=== PATIENT | male | born 2000 | race Caucasian/White ===

== ENCOUNTER 2019-08-18 00:24 | Emergency (ER) | payer OTHER ==
[2019-08-18] MEDS ORDERED: LORAZEPAM INJ 2 MG/1 ML VIAL IV ONE ×2 (00:44→07:24)
[2019-08-18] MEDS ORDERED: KETOROLAC TROMETHAMINE INJ/PF 30 MG/1 ML SDV IV ONE (00:44)
[2019-08-18] MEDS ORDERED: DEXAMETHASONE SOD PHOS INJ 10 MG/1 ML VIAL IV ONE (00:45)
[2019-08-18] MEDS ORDERED: HYDROMORPHONE HCL INJ/PF 2 MG/ML AMPULE IV ONE ×2 (00:46→02:22)
[2019-08-18] MEDS ORDERED: METHOCARBAMOL INJ/PF 1000 MG/10 ML SDV IV ONE (02:19)
--- NOTE | 2019-08-18 02:25 | ER Document Report ---
ED Neck/Back Problem - General Chief Complaint: Back Pain Stated Complaint: BACK PAIN Time Seen by Provider: 08/18/19 00:38 Mode of Arrival: Medic Information source: Patient Notes: 18-year-old man presents to the emergency department with a history of lower back pain. He apparently bent over in the shower and felt sudden sharp pain and suddenly numbness from the waist down with tingling. Denies a history of. Describes numbness and tingling in his legs bilaterally left side greater than right. He denies incontinence of urine or stool. Apparently has had multiple plain x-[place] however no MRI. No blunt trauma or fall, pain in the lower back/SI joints bilaterally left greater than right. TRAVEL OUTSIDE OF THE [place] IN LAST 30 DAYS: No - Related Data Allergies/Adverse Reactions: No Known Allergies Allergy (Unverified 08/18/19 00:32) Past Medical History - Social History Smoking Status: Former Smoker Frequency of alcohol use: Social Drug Abuse: None Family History: Reviewed & Not Pertinent Patient has suicidal ideation: No Patient has homicidal ideation: No Review of Systems - Review of Systems Notes: Constitutional: Negative for fever. HENT: Negative for sore throat. Eyes: Negative for visual changes. Cardiovascular: Negative for chest pain. Respiratory: Negative for shortness of breath. Gastrointestinal: Negative for abdominal pain, vomiting or diarrhea. Genitourinary: Negative for dysuria. Musculoskeletal: + Severe back pain. Skin: Negative for rash. Neurological: + Numbness lower extremities bilaterally 10 point ROS negative except as marked above and in HPI. Physical Exam - Vital signs Vitals: Temp Pulse Resp BP Pulse Ox 99.1 F 84 20 131/87 H 100 08/18/19 00:25 08/18/19 00:25 08/18/19 00:25 08/18/19 00:25 08/18/19 00:25 - Notes Notes: PHYSICAL EXAMINATION: Physical Exam: General: Well-nourished well-developed 18-year-old man in marked distress secondary to back pain HEENT: NC/AT, pupils equal round and reactive to light, MM moist,nares clear, Neck: supple, no adenopathy, no masses. Lungs: clear, no wheezing, no rales no rhonchi CVS: Regular rate and rhythm no murmur gallop or rub Abdomen: Soft active nontender, no masses, no hepatosplenomegaly Ext: + Back pain lower lumbar and sacroiliac area left greater than right Neuro: Alert and responsive, moving all 4 extremities + numbness in the right leg with a paresthesia/tingling on the left side to touch Skin: Intact no open lesions, no rash PSYCH: Normal mood, normal affect. Course - Re-evaluation Re-evalutation: 08/18/19 02:52 Patient was given a cocktail of medications to treat the pain. He received Toradol 30 mg IV, Decadron 10 mg IV, Lorazepam 1 mg IV, hydromorphone 0.5 mg IV. He he obtained some relief of pain and went to the CT scanner. Upon return from the CT scanner he states the pain was starting to return and the severity was back at a 9/10. An order was given then for IV Robaxin at 1000 mg IV and hydromorphone 0.5 mg IV. Review of the CT scan reveals no acute abnormalities, no fracture, no dislocation or narrowing of disc spaces were identified. Given the patient's neurologic complaint along with the severity of pain a MRI is warranted. I discussed this patient with Dr Hinton, as he will assume the patient's care. MRI is being ordered with the understanding that it may not be done before 7 AM. The patient is aware of the wait time for the MRI and is in agreement with getting the study performed. - Vital Signs Vital signs: Temp Pulse Resp BP Pulse Ox 98.0 F 80 18 116/50 L 99 08/18/19 10:34 08/18/19 10:34 08/18/19 07:30 08/18/19 10:34 08/18/19 10:34 - Diagnostic Test Radiology reviewed: Image reviewed, Reports reviewed - CT scan lumbosacral spine: No acute abnormalities noted. Discharge - Discharge Clinical Impression: Numbness and tingling of left leg Low back pain Qualifiers: Chronicity: acute Back pain laterality: bilateral Sciatica presence: with sciatica Sciatica laterality: bilateral sciatica Qualified Code(s): M54.42 - Lumbago with sciatica, left side Condition: Stable Disposition: HOME, SELF-CARE Instructions: Low Back Pain ([facility]), Warm Packs ([facility]) Additional Instructions: Your MRI showed no abnormalities here. Continue to seek out physical therapy. Take muscle relaxers as directed for severe pain. Watch for dizziness and drowsiness with these medications. Follow-up with your primary care provider. Return to the emergency department with worsening or new concerning symptoms of any sort. Prescriptions: Methocarbamol [Robaxin-750] 750 mg PO TID PRN #21 tablet PRN Reason:
--- NOTE | 2019-08-18 02:26 | RADIOLOGY REPORT (SQ) ---
EXAM DESCRIPTION: CT LUMBAR SPINE WITHOUT IV CONTRAST COMPLETED DATE/TME: 08/18/2019 00:48 CLINICAL HISTORY: 18 years, Male, back pain COMPARISON: None. TECHNIQUE: 315 Images stored on PACS. All CT scanners at this facility use dose modulation, iterative reconstruction, and/or weight based dosing when appropriate to reduce radiation dose to as low as reasonably achievable (ALARA). [facility]: Dose Right [facility]: CareDose [facility]: Dose Right [facility]: Teradose 4D [facility]: BitLeap LIMITATIONS: None. FINDINGS: Evaluation of spinal canal contents limited due to CT technique. However, vertebral body height and alignment is preserved. Note is made of a well-corticated ossific density associated with an area of endplate irregularity along the anterior superior margin of L4 vertebral body. This likely reflects normal variant anatomy/unfused ossification center/limbus vertebrae. No CT evidence for acute fracture or subluxation. The disc spaces are otherwise maintained. IMPRESSION: No CT evidence for acute lumbar spine abnormality. TECHNICAL DOCUMENTATION: Quality ID # [id number]: Final reports with documentation of one or more dose reduction techniques (e.g., Automated exposure control, adjustment of the mA and/or kV according to patient size, use of iterative reconstruction technique) copyright 2011 [employer]- All Rights Reserved
[2019-08-18] MEDS ORDERED: DIAZEPAM INJ 10 MG/2 ML DISP.SYRIN IV ONE (04:15)
--- NOTE | 2019-08-18 08:49 | RADIOLOGY REPORT (SQ) ---
EXAM DESCRIPTION: MRI LUMBAR SPINE WITHOUT COMPLETED DATE/TIME: 08/18/2019 8:25 am REASON FOR STUDY: Numbness lower extremities bilaterally COMPARISON: CT of the lumbar spine without contrast from 08/18/2019 TECHNIQUE: Sagittal and Axial imaging includes T1, T2, STIR and gradient echo sequences. Coronal T2/ HASTE imaging. LIMITATIONS: None. FINDINGS: VISUALIZED UPPER ABDOMEN: No abnormality. SEGMENTATION: There are 5 lumbar-type vertebral bodies with a limbus vertebra at L4. There is no tra nsition anatomy at the lumbosacral junction. ALIGNMENT: Anatomic. VERTEBRAE: Intact. BONE MARROW: No abnormality. DISC SIGNAL: Normal. POSTERIOR ELEMENTS: Intact. HARDWARE: None in the spine. CORD AND CONUS: The conus medullaris terminates at the level of T12-L1 and is normal in caliber and s ignal intensity. SOFT TISSUES: No aortic aneurysm seen. No bulky retroperitoneal adenopathy or mass. No paraspinal mas s or fluid. L1-L2: No spinal or foraminal stenosis. L2-L3: No spinal or foraminal stenosis L3-L4: No spinal or foraminal stenosis. L4-L5: No spinal or foraminal stenosis. L5-S1: Degeneration of the right SI joint. There is no spinal or foraminal stenosis LOWER THORACIC: No stenosis. SACRUM: Intact. OTHER: No other findings. IMPRESSION: No acute abnormality of the lumbar spine. TECHNICAL DOCUMENTATION: JOB ID: [id number] 2010 [employer]- All Rights Reserved Reading location - IP/workstation name: [email or web address]
--- NOTE | 2019-08-18 10:33 | ER Document Report ---
ED General - General Chief Complaint: Back Pain Stated Complaint: BACK PAIN Time Seen by Provider: 08/18/19 00:38 TRAVEL OUTSIDE OF THE [place] IN LAST 30 DAYS: No - HPI Notes: Care of this patient was turned over to me at the beginning of my shift. Please see Dr. Wiggins's note for the beginning of this patient's ED course and disposition. In short this is a 18-year-old male with a history of ongoing back pain who was bending over in the shower and complained of numbness going down his left leg. He has had multiple imaging studies performed and never had an MRI. He denies any bowel or bladder incontinence, no saddle anesthesia, no focal weakness. He was evaluated here with a CT scan which was unremarkable, but MRI was ordered. He had to wait in the morning. He complained of back pain through the night and was medicated with relief intermittently. - Related Data Allergies/Adverse Reactions: No Known Allergies Allergy (Unverified 08/18/19 00:32) Past Medical History - General Information source: Patient - Social History Smoking Status: Former Smoker Frequency of alcohol use: Social Drug Abuse: None Family History: Reviewed & Not Pertinent Patient has suicidal ideation: No Patient has homicidal ideation: No Review of Systems - Review of Systems Musculoskeletal: See HPI Neurological/Psychological: See HPI -: Yes All other systems reviewed and negative Physical Exam - Vital signs Vitals: Temp Pulse Resp BP Pulse Ox 99.1 F 84 20 131/87 H 100 08/18/19 00:25 08/18/19 00:25 08/18/19 00:25 08/18/19 00:25 08/18/19 00:25 - Notes Notes: This is a 18-year-old male who appears stated age in no acute distress. Physical exam is in 1 to the of chief complaint. Examination of the spine yields no obvious deformity. He has no midline tenderness step-off. He has paraspinal musculature tenderness throughout the lumbosacral spine. Negative straight leg raise bilaterally. He reports diminished sensation to the left lateral aspect of the left leg. Full range of motion. Strength is 4+ out of 5 bilaterally, limited secondary to patient's pain. Reflexes are symmetrical. Course - Re-evaluation Re-evalutation: 08/18/19 10:31 Patient presents to the emergency department for evaluation. He was initially seen by the ED physician overnight. The patient was awaiting an MRI. He had MRI performed and no abnormality was noted. I believe this is all musculoskeletal. He is told he should go back to physical therapy. I will send him home with a prescription for Robaxin and close follow-up. He is to return to the ED with worsening. - Vital Signs Vital signs: Temp Pulse Resp BP Pulse Ox 98.0 F 80 18 116/50 L 99 08/18/19 10:34 08/18/19 10:34 08/18/19 07:30 08/18/19 10:34 08/18/19 10:34 Discharge - Discharge Clinical Impression: Numbness and tingling of left leg Low back pain Qualifiers: Chronicity: chronic Back pain laterality: bilateral Sciatica presence: unspecified whether sciatica present Qualified Code(s): M54.5 - Low back pain Condition: Stable Disposition: HOME, SELF-CARE Instructions: Low Back Pain ([facility]), Warm Packs ([facility]) Additional Instructions: Your MRI showed no abnormalities here. Continue to seek out physical therapy. Take muscle relaxers as directed for severe pain. Watch for dizziness and drow siness with these medications. Follow-up with your primary care provider. Return to the emergency department with worsening or new concerning symptoms of any sort. Prescriptions: Methocarbamol [Robaxin-750] 750 mg PO TID PRN #21 tablet PRN Reason:
[2019-08-18 10:38] VITALS: BP 116/50
== END 2019-08-18 11:09 | disposition home or self-care (01) ==
LOC: ER 00:24
DX: M54.42 Lumbago with sciatica, left side (principal); R20.0 Anesthesia of skin; X58.XXXA Exposure to other specified factors, initial encounter; Z87.891 Personal history of nicotine dependence
CPT/HCPCS: 72131; 72148; 96365; 96375; 99284; J1100; J1170; J1885; J2060; J2800; J3360